=== PATIENT | female | born 2000 | race Caucasian/White ===

== ENCOUNTER 2022-11-09 20:10 | Observation (INO) | payer OTHER ==
[2022-11-09] MEDS ORDERED: NALOXONE 0.4 MG/ML 1 ML VIAL IV PRN (23:00)
--- NOTE | 2022-11-09 23:14 | ED ---
General Adult HPI - General Chief complaint: Seizure Stated complaint: Seizure Time Seen by Provider: 11/09/22 21:12 Source: patient Mode of arrival: EMS Limitations: no limitations - History of Present Illness Initial comments: This is a 22-year-old female with a past medical history including PTSD, anxiety and depression presents emergency Department as a transfer patient from [facility] for evaluation by neurology for potential pseudoseizures. The patient reportedly had seizure-like activity at home with 2 episodes of seizure-like activity at home and one with EMS in transport. The patient did not have a history of any seizure disorder. The patient was reportedly able to respond during these seizure-like activity episodes and was transferred after a normal workup to be evaluated by neurology. On arrival, the patient was laying in bed without any acute distress but did have 2 episodes of seizure-like activity lasting approximately 30 seconds but was able to be responsive during these episodes. The episodes would only last while the patient's family members were in the room and were not occurring when she was alone in the room. The patient herself denied any other acute pain or complaints at this time. - Related Data Allergies Allergy/AdvReac Type Severity Reaction Status Date / Time No Known Allergies Allergy Verified 11/09/22 20:22 Review of Systems ROS Statement: Those systems with pertinent positive or pertinent negative responses have been documented in the HPI. ROS Other: All systems not noted in ROS Statement are negative. Past Medical History Past Medical History: No Reported History History of Any Multi-Drug Resistant Organisms: None Reported Past Surgical History: No Surgical Hx Reported Past Psychological History: No Psychological Hx Reported Smoking Status: Smoker, current status unknown Past Alcohol Use History: None Reported Past Drug Use History: None Reported General Exam Limitations: no limitations General appearance: alert, in no apparent distress Head exam: Present: atraumatic, normocephalic, normal inspection Eye exam: Present: normal appearance, PERRL Pupils: Present: normal accommodation ENT exam: Present: normal exam, normal oropharynx, mucous membranes moist Neck exam: Present: normal inspection, full ROM Respiratory exam: Present: normal lung sounds bilaterally Cardiovascular Exam: Present: regular rate, normal rhythm, normal heart sounds GI/Abdominal exam: Present: soft, normal bowel sounds Extremities exam: Present: normal inspection, full ROM Back exam: Present: normal inspection, full ROM Neurological exam: Present: alert, oriented X3, CN II-XII intact Psychiatric exam: Present: normal affect, normal mood Skin exam: Present: warm, dry Course Vital Signs 11/09/22 20:22 Temperature 98.4 F Pulse Rate 54 L Respiratory 18 Rate Blood Pressure 117/74 O2 Sat by Pulse 98 Oximetry Medical Decision Making - Medical Decision Making Was pt. sent in by a medical professional or institution (, [facility], [facility], urgent care, hospital, or care home...) When possible be specific @ -Yes, [facility] emergency department Did you speak to anyone other than the patient for history (EMS, parent, family, police, friend...)? What history was obtained from this source @ -Yes, patient's father and boyfriend were at the bedside and stated that the patient had these seizure-like activity multiple times at the day today. Did you review nursing and triage notes (agree or disagree)? Why? @ -I reviewed and agree with nursing and triage notes Were old charts reviewed (outside hosp., previous admission, EMS record, old E KG, old radiological studies, urgent care reports/EKG's, care home records)? Report findings @ -Yes, outside hospital records were reviewed for the ER visit@[facility]. Differential Diagnosis (chest pain, altered mental status, abdominal pain women, abdominal pain men, vaginal bleeding, weakness, fever, dyspnea, syncope, headache, dizziness, GI bleed, back pain, seizure, CVA, palpatations, mental health)? @ -Pseudoseizure, seizure activity, electrolyte abnormality EKG interpreted by me (3pts min.). @ -None X-rays interpreted by me (1pt min.). @ -None done CT interpreted by me (1pt min.). @ -CT head was ordered but was pending at this time. U/S interpreted by me (1pt. min.). @ -None done What testing was considered but not performed or refused? (CT, X-rays, U/S, labs)? Why? @ -None What meds were considered but not given or refused? Why? @ -None Did you discuss the management of the patient with other professionals (professionals i.e. COLLEEN Bose, [facility] [employer] [facility], lab, RT, psych nurse, social science teacher, sales service assistant, teacher, medical officer psychiatry, case operator)? Give summary @ -Yes, admitting physician was contacted regarding placement patient in observation. Was smoking cessation discussed for >3mins.? @ -No Was critical care preformed (if so, how long)? @ -No Were there social determinants of health that impacted care today? How? (Homelessness, low income, unemployed, alcoholism, drug addiction, transportation, low edu. Level, literacy, decrease access to med. care, [place] [facility], rehab)? @ -No Was there de-escalation of care discussed even if they declined (Discuss DNR or withdrawal of care, Hospice)? DNR status @ -No What co-morbidities impacted this encounter? (DM, HTN, Smoking, COPD, CAD, Cancer, CVA, ARF, Chemo, Hep., AIDS, mental health diagnosis, sleep apnea, morbid obesity)? @ -PTSD, anxiety, depression Was patient admitted / discharged? Hospital course, mention meds given and route, prescriptions, significant lab abnormalities, going to OR and other pertinent info. @ -The patient was seen and evaluated in the emergency department. Physical exam, the patient was resting in bed and did have 2 seizure-like episodes lasting approximately 30 seconds while was in the room but was responsive during these episodes. Vital signs on admission were stable. The patient had a full workup performed at [facility] and laboratory workup was obtained here. The patient also had a CT of the head ordered at the request of the admitting physician. The patient continued to remain stable and did not require any further medication at this time. The patient was placed in observation for neurology to evaluate the patient. The patient and her family were agreeable to this plan and was placed in observation in stable condition. Undiagnosed new problem with uncertain prognosis? @ -No Drug Therapy requiring intensive monitoring for toxicity (Heparin, Nitro, Insulin, Cardizem)? @ -No Were any procedures done? @ -No Diagnosis/symptom? @ -Seizure-like activity, rule out pseudoseizure Acute, or Chronic, or Acute on Chronic? @ -Acute Uncomplicated (without systemic symptoms) or Complicated (systemic symptoms)? @ -Uncomplicated Side effects of treatment? @ -No Exacerbation, Progression, or Severe Exacerbation? @ -No Poses a threat to life or bodily function? How? (Chest pain, USA, SD, pneumonia, PE, COPD, DKA, ARF, appy, cholecystitis, CVA, Diverticulitis, Homicidal, Suicidal, threat to staff... and all critical care pts) @ -No Critical Care Time Critical Care Time: No Disposition Clinical Impression: Seizure-like activity Disposition: ADMITTED IP TO THIS HOSP Condition: Stable Is patient prescribed a controlled substance at d/c from ED?: No Referrals: Roverto Ramos MD [Primary Care Provider] - 1-2 days Time of Disposition: 22:30 Decision to Admit Reason: Admit from EC Decision Date: 11/09/22 Decision Time: 22:30
--- NOTE | 2022-11-10 00:07 | CT ---
EXAM: CT Head Without Intravenous Contrast CLINICAL HISTORY: ITS.REASON CT Reason: Seizure like activity TECHNIQUE: Axial computed tomography images of the head/brain without intravenous contrast. CTDI is 49.2 mGy and DLP is 1099.4 mGy-cm. This CT exam was performed using one or more of the following dose reduction techniques: automated exposure control, adjustment of the mA and/or kV according to patient size, and/or use of iterative reconstruction technique. COMPARISON: No previous studies. FINDINGS: Brain: Unremarkable. No hemorrhage. No significant white matter disease. No abnormal extra-axial collection is noted. Midline shift: Midline anatomy is unremarkable. Ventricles: Unremarkable. No ventriculomegaly. Bones/joints: Calvarium is within normal limits. No acute fracture. Soft tissues: Unremarkable. Sinuses: Visualized sinuses are unremarkable. Mastoid air cells: Mastoid air cells are well pneumatized to. Other findings: Age appropriate changes. IMPRESSION: 1. No acute intracranial pathology is detected. 2. I advised MRI imaging of the brain with contrast administration for follow-up, for the sake of completeness of seizure workup.
[2022-11-10 00:24] LABS: ALT 20 U/L (4-34); AST 26 U/L (14-36); African American GFR (CKD) >90 (>60 ml/min/1.73 sqM); Alkaline Phosphatase 52 U/L (38-126); Anion Gap 7 mmol/L; Blood Urea Nitrogen 13 mg/dL (7-17); Calcium 9.4 mg/dL (8.4-10.2); Carbon Dioxide 22 mmol/L (22-30); Chloride 107 mmol/L (98-107); Glucose 86 mg/dL (74-99); Non-African American GFR(CKD) >90 (>60 ml/min/1.73 sqM); Potassium 4.2 mmol/L (3.5-5.1); Sodium 136 mmol/L (137-145); Total Bilirubin 0.7 mg/dL (0.2-1.3); Total Protein 6.6 g/dL (6.3-8.2)
[2022-11-10 00:40] LABS: Basophils % (A) 0 %; Eosinophils # (A) 0.1 k/uL (0-0.7); Eosinophils % (A) 2 %; HCT 38.7 % (34.0-46.0); HGB 12.9 gm/dL (11.4-16.0); Lymphocytes # (A) 2.8 k/uL (1.0-4.8); Lymphocytes % (A) 36 %; MCH 30.9 pg (25.0-35.0); MCHC 33.4 g/dL (31.0-37.0); MCV 92.5 fL (80.0-100.0); Mean Platelet Volume 7.2; Monocytes # (A) 0.4 k/uL (0-1.0); Monocytes % (A) 6 %; Neutrophils # (A) 4.1 k/uL (1.3-7.7); Neutrophils % (A) 53 %; Platelet Count 310 k/uL (150-450); RBC 4.18 m/uL (3.80-5.40); RDW 13.1 % (11.5-15.5); WBC 7.7 k/uL (4.0-11.0)
--- NOTE | 2022-11-10 02:14 | P.HPIM ---
History of Present Illness H&P Date: 11/10/22 Chief Complaint: seizure like activity 22-year-old female with depression. And anxiety She is coming in as a transfer from [facility] after having seizure-like activity she reports the first attack was at home when she was having some headache all day and then went to rest and then she was told that she was having seizure-like activity she claims that the seizure abscesses are recorded but she failed to show me the videos as he didn't have them and was waiting for the boyfriend to send her. She denies any tongue biting or loss of bladder or bowel control she denies any history of seizures she denies heavy drinking alcohol. She denies any head injury Patient denies any nausea vomiting recent travel sick contacts or any history of seizures Patient denies smoking or illicit drugs Review of Systems Pertinent positives as noted in HPI. All other systems were reviewed and are negative Past Medical History Past Medical History: No Reported History History of Any Multi-Drug Resistant Organisms: None Reported Past Surgical History: No Surgical Hx Reported Past Psychological History: No Psychological Hx Reported Smoking Status: Smoker, current status unknown, Vaper Past Alcohol Use History: None Reported Past Drug Use History: Marijuana Additional Drug Use History / Comment(s): occasional marijuana use Medications and Allergies Allergies Allergy/AdvReac Type Severity Reaction Status Date / Time No Known Allergies Allergy Verified 11/09/22 20:22 Physical Exam Vitals: Vital Signs Temp Pulse Pulse Resp BP BP Pulse Ox 11/10/22 01:19 98.3 F 58 L 16 138/62 98 11/10/22 00:11 54 L 16 116/80 98 11/09/22 20:22 98.4 F 54 L 18 117/74 98 Intake and Output 11/09/22 11/09/22 11/10/22 14:59 22:59 06:59 Other: Weight 77.111 kg 77.111 kg Constitutional: No acute distress, conversant, pleasant Eyes: Anicteric sclerae, moist conjunctiva, Pupils equal round reactive to light ENMT: NC/AT Oropharynx clear, no erythema, or exudates Neck: Supple, no masses, or JVD No carotid bruits No thyromegaly Lungs: Clear to auscultation Clear to percussion Normal respiratory effort, no accessory muscle use Cardiovascular: Heart regular in rate and rhythm, No murmurs, gallops, or rubs No peripheral edema Abdominal: Soft Nontender, no guarding, rebound or rigidity Abdomen moving with respiration Normoactive bowel sounds No hepatomegaly, No splenomegaly No palpable mass No abdominal wall hernia noted Skin: Normal temperature, tone, texture, turgor No induration No subcutaneous nodules No rash, lesions No ulcers Extremities: No digital cyanosis No clubbing Pedal pulses intact and symmetrical Radial pulses intact and symmetrical No calf tenderness Psychiatric: Alert and oriented to person, place and time Appropriate affect fair judgement Neuro Muscles Strength 5/5 in all 4 extremities Sensation to light touch grossly present throughout Cranial nerves II-XII grossly intact Lymphatics: no palpable cervical or supraclavicular lymph nodes Results CBC & Chem 7: 11/09/22 23:50 11/09/22 23:50 Labs: Abnormal Lab Results - Last 24 Hours (Table) 11/09/22 Range/Units 23:50 Sodium 136 L (137-145) mmol/L Thrombosis Risk Factor Assmnt - Choose All That Apply Any of the Below Risk Factors Present?: Yes Each Factor Represents 1 point: Obesity (BMI >25) Other Risk Factors: No Other congenital or acquired thrombophilia - If yes, enter type in comment: No Thrombosis Risk Factor Assessment Total Risk Factor Score: 1 Thrombosis Risk Factor Assessment Level: Low Risk Assessment and Plan Assessment: 22-year-old female with no significant past medical history transferred to a facility for [facility] for seizure-like activity I discussed the case with the ED doctor and accepted the admission for neurologic evaluation With anticipated length of stay less than 2 midnights She does seizure-like activity, check further brain imaging Seizure precautions Fall precautions Neurological evaluation Check EEG Check electrolytes magnesium Full code DVT prophylaxis heparin subcu 3 times a day
[2022-11-10] MEDS: SODIUM CHLORIDE 0.9% 1,000 ML IV SCH ×2 (02:35→19:58)
[2022-11-10] MEDS ORDERED: LORazepam 2 MG/ML INJ IV PRN (08:43)
[2022-11-10] MEDS ORDERED: ALBUTEROL NEBULIZED 2.5 MG/3 ML INHALATION PRN (08:44)
[2022-11-10] MEDS: busPIRone HCl 10 MG TAB PO SCH ×2 (09:27→19:54)
[2022-11-10] MEDS: ESCITALOPRAM 10 MG TAB PO SCH (09:28)
[2022-11-10] MEDS: ENOXAPARIN 40 MG/0.4 ML SYRINGE SQ SCH (09:28)
[2022-11-10 11:06] LABS: Cocaine Screen,Urine Not Detected (NotDetected); Opiate Screen,Urine Not Detected (NotDetected); Phencyclidine Screen,Urine Not Detected (NotDetected); Urn Cannabinoid Scrn Detected (NotDetected)
[2022-11-10 11:07] LABS: Amphetamine Screen,Urine Not Detected (NotDetected); Barbiturate Screen,Urine Not Detected (NotDetected); Benzodiazepines Screen,Urine Detected (NotDetected); Methadone Screen, Urine Not Detected (NotDetected); Oxycodone Screen, Urine Not Detected (NotDetected); Tricyclic Antidepressant,Urine Not Detected (NotDetected)
[2022-11-10] MEDS ORDERED: levETIRAcetam IV 1,500 MG in SODIUM CHLORIDE 0.9% 250 ML IVPB ONE (11:48)
[2022-11-10] MEDS ORDERED: levETIRAcetam IV 500 MG/5 ML VIAL IVP ONE (12:00)
--- NOTE | 2022-11-10 12:57 | P.CNNES ---
History of Present Illness Consult date: 11/10/22 Requesting physician: Mack Faria Reason for Consult: Seizure-like activity, rule out pseudoseizures History of Present Illness: Patient is a 22-year-old left-handed female came to the hospital by ambulance yesterday at 8:10 PM for seizure-like activity. Patient does not remember details about her history. I spoke to patient's boyfriend, who provided with a history. Apparently in August 2022, patient started having chest pains. In beginning of October, she started having syncopal spells versus seizure. Patient's boyfriend states that in early October, she passed out 4 times while she was on the phone with him and was complaining of dizziness, lightheadedness. She fell in the basement, passed out. She was taken to [facility], where she was diagnosed with "syncope seizure". Another time she was at the [facility] with her nephew when she started feeling lightheaded, blurred vision, with difficulty with her vision and she called 911. The third time she was admitted last on 11/06/2022. Patient was dehydrated, had anxiety attack, and was taken to the hospital where she was diagnosed with psychological pseudoseizures. She was convulsing, whole-body jerking rapidly. Patient currently not on any seizure medication. Patient was referred to woodworking machine offbearer Dr. Brown on 12/09/2022 and also referred to a neurologist in [facility] [place]. On Thursday, 2 days ago, she had a single seizure, in which she was convulsing, jerking for 2 minutes and then she started crying telling her boyfriend that "I don't want to ". Apparently yesterday patient woke up at 12 noon, complaining of chest pain and then complaining of headache. She laid down and tried to go back to sleep. Patient states that her boyfriend came back from the bathroom and she went into seizure and then she does not remember details and woke up in the hospital. She does not remember EMS arriving at home, or EMS ride to the hospital. Denies any tongue bite or loss of control of urine. Patient complaining of headache for the last 4 days. She is trying to sleep it off rather than taking medication. Patient's boyfriend showed me some recorded video was on his cell phone in which patient was laying on her side, and then started having jerking, which appears somewhat nonepileptic. Patient had a very depressed facial expression, crying with it. EMS flow sheet not available in the chart. Vital signs on arrival blood pressure 117/74, pulse rate 54, temperature 98.4. Blood test shows normal CBC, sodium 136 potassium 4.2, normal renal and hepatic panel. CT head revealed no acute intracranial process. I personally reviewed CT head, agree with the findings. Home medications include BuSpar 10 mg twice a day, Seroquel 50 mg at bedtime, Protonix, Lexapro 10 mg. Albuterol. Patient has history of vaping, but does not smoke. She denies any alcohol use. She lives with her dad and boyfriend. She smokes marijuana once in a while. Does not do any other drugs. Does not take any oral control pills, although is on copper IUD. Review of Systems Constitutional: Denies chills, Denies fever Eyes: denies blurred vision, denies diplopia, denies pain Ears: deny: decreased hearing, ear discharge, earache Ears, nose, mouth and throat: Reports headache, Denies sore throat Cardiovascular: Reports chest pain, Denies shortness of breath Respiratory: Denies cough, Denies excessive sputum Gastrointestinal: Denies abdominal pain, Denies diarrhea, Denies nausea, Denies vomiting Genitourinary: Denies dysuria, Denies hematuria Musculoskeletal: Reports low back pain, Denies myalgias, Denies neck pain Integumentary: Denies pruritus, Denies rash Neurological: Reports as per HPI Psychiatric: Reports anxiety, Reports depression Endocrine: Reports fatigue, Denies weight change Past Medical History Past Medical History: No Reported History History of Any Multi-Drug Resistant Organisms: None Reported Past Surgical History: No Surgical Hx Reported Past Psychological History: No Psychological Hx Reported Smoking Status: Smoker, current status unknown, Vaper Past Alcohol Use History: None Reported Past Drug Use History: Marijuana Additional Drug Use History / Comment(s): occasional marijuana use Medications and Allergies Home Medications Medication Instructions Recorded Confirmed Type Albuterol Sulfate [Ventolin HFA] 2 puff INHALATION RT-QID PRN 11/10/22 11/10/22 History Escitalopram [Lexapro] 10 mg PO DAILY 11/10/22 11/10/22 History Pantoprazole Sodium [Protonix] 20 mg PO HS 11/10/22 11/10/22 History QUEtiapine [SEROquel] 50 mg PO HS 11/10/22 11/10/22 History busPIRone HCl [Buspar] 10 mg PO BID 11/10/22 11/10/22 History Allergies Allergy/AdvReac Type Severity Reaction Status Date / Time No Known Allergies Allergy Verified 11/10/22 07:40 Physical Examination - Vital Signs Vital Signs: Vital Signs Temp Pulse Pulse Resp BP BP Pulse Ox 11/10/22 07:19 97.7 F 52 L 17 91/51 98 11/10/22 01:19 98.3 F 58 L 16 138/62 98 11/10/22 00:11 54 L 16 116/80 98 11/09/22 20:22 98.4 F 54 L 18 117/74 98 Intake and Output 11/09/22 11/10/22 11/10/22 22:59 06:59 14:59 Other: # Voids 1 Weight 77.111 kg 77.111 kg Patient is young female, very pleasant, in no acute distress. Patient is alert awake oriented to time place and person. Speech and language functions are normal. Patient can name and repeat very well. No aphasia or dysarthria. Attention, concentration and fund of knowledge is adequate. On cranial nerve examination, pupils are equal, round and reacting to light, visual almanza are full on confrontation, with no neglect on double simultaneous stimulation. Extraocular muscles are intact with no nystagmus. Face is symmetric, tongue protrudes to the midline. Palatal elevation and sensation normal, hearing and shoulder shrug normal, facial sensation normal. There is no evidence of tongue bite fili. On muscle strength testing, there is no pronator drift and the strength is normal in arms and legs distally and proximally. Deep tendon reflexes are symmetric and trace at the biceps, 1 at brachioradialis, 2 at the knees, 1 ankles and plantars downgoing bilaterally. Sensory to touch is equal with no neglect on double simultaneous stimulation. Cerebellar function showed no ataxia for [id number] testing. No dysdiadochokinesia. No ataxia for [id number] testing on either side. Tone and bulk of muscles normal. Gait deferred.. On general examination, there is no carotid bruit or murmur, S1-S2 audible. Chest is clear on consultation. Abdomen is soft nontender. No organomegaly, bowel sounds present. Peripheral pulses are present. No edema. I was across patient's room seeing another patient, when I was told that patient is having a seizure-like spell. Patient was again laying on her side and having some shoulder jerking, and some pelvic thrusting. Appears somewhat nonepileptic. Results - Laboratory Findings CBC and BMP: 11/09/22 23:50 11/09/22 23:50 Abnormal Lab Findings: Abnormal Labs 11/09/22 23:50 Sodium 136 L Assessment and Plan Assessment: * New onset seizure type spells versus syncope. Rule out seizure, nonepileptic seizure versus syncopal spells. * New onset chest pains, unclear cause. * Anxiety, depression. Rule out panic attacks causing above symptomatology Plan: * MRI of the brain with and without contrast, rule out any structural abnormality. * Urgent EEG to rule out any epileptiform activity. Patient may need prolonged EEG testing. * Cardiology consultation for chest pain, rule out syncopal spells * Orthostatic vitals. * Telemetry monitoring so far showing sinus bradycardia between 50s, sometimes dipping down in 40s. * Patient to receive 1.5 g of Keppra 1 dose, and Ativan 1 mg IV to stop seizure-like activity. Further dosing based upon EEG results. * Recommend patient no driving unless seizure free for 6 months, climbing ladders, operating dangerous machinery or unsupervised swimming. * Neurology will follow. Thank you for the consult. Time with Patient: Greater than 30
--- NOTE | 2022-11-10 14:53 | CONS ---
CONSULTATION HISTORY OF PRESENT ILLNESS: This is a 22-year-old lady with a history of underlying depression and possible anxiety disorder. She uses marijuana and smokes cigarettes. She came into the hospital complaining of what seems to be a seizure-like activity. She has some anxiety and depression. Seizure disorder is a probably pseudoseizure. This is being evaluated. However, she had a sharp pain in the chest starting on the right side of the chest across the chest lasting a few seconds, on and off, fleeting in nature. I was asked to see her in this regard. EKG is unremarkable. The patient's pain seems atypical. Laboratory data suggest that her electrolyte profile is normal. Quality of pain is atypical. I am recommending an echocardiogram as well to be performed to rule out any structural heart disease. Physical exam is unremarkable. The patient can be discharged whenever it is okay by Neurology or admitting doctor. She has no other significant cardiac history in the past. We have to discuss the need to refrain from smoking and using marijuana on a regular basis. Please refer to the chart for other details. MEDICATIONS AT HOME: Include: 1. Seroquel. 2. Protonix. 3. Lexapro. 4. BuSpar. 5. Ventolin inhaler. PHYSICAL EXAMINATION: VITAL SIGNS: Blood pressure is 118/70, pulse rate is 58 per minute. HEENT: Unremarkable. Fundus was not examined by me. NECK: Supple. No JVD. I do not hear a carotid bruit. There is no thyromegaly. HEART: Reveals S1 and S2 heard normally. No rub, murmur, or gallop. LUNGS: Clear. ABDOMEN: Soft and nontender. EXTREMITIES: Lower extremities reveal normal pulses. No edema. CENTRAL NERVOUS SYSTEM: Normal. DIAGNOSTIC STUDIES: EKG revealed sinus rhythm, no acute changes. IMPRESSION: 1. Atypical chest pain. 2. Question of seizure disorder. RECOMMENDATIONS: The patient's CAT scan of the head was unremarkable. Seizure workup is in progress. The pain in the chest is atypical. No further workup is necessary other than an echocardiogram which has been ordered. The patient can be discharged and follow up with her product applications scientist in the [place], [place] area. MMODL / IJN: [id number] /
--- NOTE | 2022-11-10 16:28 | MR ---
EXAMINATION TYPE: MR brain wo/w con DATE OF EXAM: 11/10/2022 COMPARISON: CT brain 11/09/2022 HISTORY: Syncope vs seizures, headaches CONTRAST: Performed utilizing 7.5 mL intravenous Gadavist gadolinium contrast. TECHNIQUE: Multiplanar, multiecho imaging on a 3.0 Yesica magnet is performed through the brain. Stud y is performed within 24 hours of arrival to the hospital. The craniovertebral junction is normal. The pituitary is normal. Optic chiasm as visualized appears normal. Diffusion-weighted imaging is performed. No abnormal hyperintensity is present to suggest an acute i ntracranial infarct or acute ischemic change. Signal of the brain appears normal. No suspicious deep white matter signal change to correlate with m igraine headaches is identified. Ventricles and sulci are appropriate for the patient age. No abnormal enhancement is evident. IMPRESSIONS: 1. Unremarkable pre and postcontrast MRI brain
--- NOTE | 2022-11-10 17:36 | P.PN ---
Subjective Progress Note Date: 11/10/22 Hospital course: Patient is a 22-year-old female of anxiety, nicotine dependence, and cannabinoid use. She presented to the emergency department with a chief complaint of seizure-like activity. Patient was reportedly transferred from [facility] where she presented with seizure-like activity after reports of headache. Upon arrival to our facility on 11/09/22 patient underwent full evaluation in our emergency department. Vital signs stable with blood pressure 117/74, heart rate 54, respiratory rate 18, SpO2 98% on room air and temperature 98.4F. CT head was completed and radiology report reviewed stating negative for acute intercranial pathology or abnormality. Patient was admitted under our services with consultation to neurology. Physical exam Patient seen and fully evaluated at bedside this morning. Patient's boyfriend at bedside as well. Per RN patient continues to have recurrent episodes of noted seizure-like activity: Believed to be stress-induced pseudoseizures, pt stated she was going to have a seizure and began having shaking of her arms and a sternal rub was performed and pt immediately stopped shaking movement and began talking and answering questions appropriately. Patient's boyfriend at bedside states that patient has diffuse shaking-like episodes when she is anxious or dealing with family issues. Patient has long history of traumatic family events and suffers from depression and anxiety. Vital signs reviewed and stable. General: Nontoxic, no distress and appears stated age. Derm: Skin warm and dry, normal coloration for ethnicity. Head: Atraumatic, normocephalic and symmetric. Eyes: EOMs intact, no lid lag, and anicteric sclera Mouth: no lip lesions, mucus membranes moist Cardiovascular: regular rate and rhythm with normal S1S2, no murmur, positive posterior tibial pulses bilaterally, and cap refill < 2 seconds. Lungs: Respirations even, regular, and unlabored on room air. Lungs CTA bilaterally, no rhonchi, no rales, no wheezing, and no accessory muscle usage. Abdominal: soft, nontender to palpation, no guarding, no appreciable organomegaly Ext: ROM intact. No gross muscle atrophy, no edema, no contractures Neuro: Speech clear, face symmetrical and CN II-XII grossly intact with no noted focal neuro deficits Psych: Alert and oriented to person, place, time, and situation. Appropriate and pleasant affect. Assessment and Plan of Care: Seizure-Like activity, believed to be pseudoseizures. Anxiety and depression Cannabinoid use disorder Nicotine dependence -Believed to be pseudoseizures, pt stated she was going to have a seizure and began having shaking of her arms and a sternal rub was performed and pt immediately stopped shaking movement and began talking and answering questions appropriately. Patient's boyfriend at bedside states that patient has diffuse shaking-like episodes when she is anxious or dealing with family issues. Patient has long history of traumatic family events and suffers from depression and anxiety. -Psychiatry consulted. -Order placed for urine drug screen and STAT urine hCG. -Upon follow-up with urine hCG was negative for and urine drug screen positive for benzodiazepines and marijuana. -Notified neurologist of seizure-like activity believed to be pseudoseizures and per his recommendation patient to continue to be given Keppra loading dose of 1500 mg IVPB at this time pending EEG and MRI results. -Continue telemetry monitoring -Resume a BuSpar 10 mg twice daily, Lexapro 10 mg daily, and Seroquel 50 mg nightly. -Seizure precautions to remain in place. CODE STATUS: Full code DVT prophylaxis: Lovenox Discussed with: Patient and RN Anticipated discharge date: Within the next [address]: Home Patient was seen independently by Nurse Pracitioner. This document was prepared using [employer] dictation software. Please allow for errors in mechanical oxidizer, while rare they do occur. I reviewed the documentation as provided by the DEEPTHI above, who is the original author of this note. I agree with the documented assessment and plan, with the following changes: none Objective - Vital Signs Vital signs: Vital Signs Temp 97.7 F 11/10/22 07:19 Pulse 52 L 11/10/22 07:19 Resp 17 11/10/22 07:19 BP 91/51 11/10/22 07:19 Pulse Ox 98 11/10/22 07:19 FiO2 Intake & Output 11/09/22 11/10/22 11/10/22 18:59 06:59 18:59 Weight 77.111 kg Other: # Voids 1 - Labs CBC & Chem 7: 11/09/22 23:50 11/09/22 23:50 Labs: Abnormal Lab Results - Last 24 Hours (Table) 11/09/22 Range/Units 23:50 Sodium 136 L (137-145) mmol/L
[2022-11-10] MEDS: PANTOPRAZOLE 40 MG TABLET PO SCH (19:54)
[2022-11-10] MEDS: QUEtiapine 50 MG TAB PO SCH (19:54)
[2022-11-10] MEDS ORDERED: ACETAMINOPHEN TAB 325 MG TAB PO PRN (22:10)
--- NOTE | 2022-11-10 22:22 | EEG ---
ELECTROENCEPHALOGRAM REPORT PREAMBLE: This is a 22-year-old female with new onset seizure type spells. EEG FINDINGS: This is a 21-channel digital EEG recorded with video component, utilizing 10/20 international system with referential and bipolar montages. Background consists of well developed, well regulated moderate voltage activity in 10 hertz alpha. Background is posterior dominant and reactive to eye opening and closing. Photic driving response was not clearly seen. Drowsiness was seen with appearance of bilaterally symmetric theta frequency rhythm. Some stage 2 sleep was seen with presence of sleep spindles. Sporadic, intermittent myoclonic jerks were noted during the study. Only at 1 point, there was presence of high amplitude frontally maximal 3-4 hertz slow waves seen lasting for less than a second. No other epileptiform activity was seen. No electrographic seizure was recorded. IMPRESSION: This is a borderline abnormal EEG during wakefulness, drowsiness, and stage 2 sleep. Intermittent, sporadic myoclonic jerks were noted, with no clear-cut associated epileptiform activity seen, although associated with some higher amplitude generalized theta at times prior to the jerk. If your suspicion for seizures is high, suggest prolonged EEG for further evaluation. No electrographic seizure was recorded. MMODL / IJN: [id number] / LAKSHMI
[2022-11-11] MEDS: SODIUM CHLORIDE 0.9% 1,000 ML IV SCH ×2 (06:23→19:32)
[2022-11-11] MEDS: ESCITALOPRAM 10 MG TAB PO SCH (09:16)
[2022-11-11] MEDS: ENOXAPARIN 40 MG/0.4 ML SYRINGE SQ SCH (09:16)
[2022-11-11] MEDS: busPIRone HCl 10 MG TAB PO SCH ×2 (09:16→19:40)
[2022-11-11] MEDS ORDERED: levETIRAcetam IV 500 MG/5 ML VIAL IVP SCH (12:30)
--- NOTE | 2022-11-11 12:30 | CA ---
Transthoracic Echo Report Name: Radha Davis Age: 22 Gender: F : 2000 Exam Date: 11/10/2022 13:01 Exam Location: [place] [facility] Ht (in): 67 Wt (lb): 170 Ordering Physician: Janet Zuniga Attending/Referring Phys: [id number], Nadia [employer] Officer Adriane Chu [facility] Procedure CPT: Indications: LVF Cardiac Hx: Technical Quality: Fair Contrast 1: Total Dose (mL): Contrast 2: Total Dose (mL): MEASUREMENTS (Male / Female) Normal Values 2D ECHO LV Diastolic Diameter PLAX 4.5 cm 4.2 - 5.9 / 3.9 - 5.3 cm LV Systolic Diameter PLAX 3.2 cm IVS Diastolic Thickness 0.6 cm 0.6 - 1.0 / 0.6 - 0.9 cm LVPW Diastolic Thickness 0.9 cm 0.6 - 1.0 / 0.6 - 0.9 cm LV Relative Wall Thickness 0.3 M-MODE Aortic Root Diameter MM 2.4 cm LA Systolic Diameter MM 3.7 cm LA Ao Ratio MM 1.6 AV Cusp Separation MM 2.0 cm DOPPLER AV Peak Velocity 121.1 cm/s AV Peak Gradient 5.9 mmHg AV Mean Velocity 91.9 cm/s AV Mean Gradient 3.6 mmHg AV Velocity Time Integral 29.9 cm LVOT Peak Velocity 98.6 cm/s LVOT Peak Gradient 3.9 mmHg LVOT Velocity Time Integral 24.0 cm Mitral E Point Velocity 107.1 cm/s Mitral A Point Velocity 32.2 cm/s Mitral E to A Ratio 3.3 MV Deceleration Time 177.3 ms LV E' Lateral Velocity 19.3 cm/s Mitral E to LV E' Lateral Ratio 5.5 LV E' Septal Velocity 15.6 cm/s Mitral E to LV E' Septal Ratio 6.9 Right Atrial Pressure 3.0 mmHg FINDINGS Left Ventricle Normal left ventricular size, wall thickness, systolic function with no obvious regional wall motion abnormalities. The ejection fraction is visually estimated at 55-60%. Right Ventricle The right ventricle is normal in size and function. Right Atrium The right atrium is normal in size. Left Atrium The left atrium is normal in size. Mitral Valve Structurally normal mitral valve without significant stenosis or prolapse. Trace mitral regurgitation. Aortic Valve Structurally normal aortic valve without significant sclerosis or stenosis. There is no aortic regurgitation. Tricuspid Valve Structurally normal tricuspid valve without significant stenosis. No tricuspid regurgitation. Pulmonic Valve Structurally normal pulmonic valve without significant stenosis. Trace to mild pulmonic regurgitation. Pericardium Normal pericardium without effusion. Aorta Normal aortic root dimension. CONCLUSIONS Normal study. Normal LV size and systolic function. No significant abnormality on the Doppler exam. No pericardial effusion Previewed by: Dr. Cristina Markham MD (Electronically Signed) Final Date: 11 November 2022 12:29
--- NOTE | 2022-11-11 13:58 | P.CN ---
Psychiatric Consult - . Consult date: 11/11/22 Consult:: Psychiatry was consulted for "pseudoseizures" and EMR/chart was reviewed by commercial lines underwriter. Cfd Engineer also spoke with neurologist Dr. Stovall prior to seeing patient today and also spoke with patient's nurse. Cfd Engineer was not in her room today and was getting prolonged EEG done today. will re-attempt to see patient tomorrow.
--- NOTE | 2022-11-11 14:19 | P.PN ---
Subjective Progress Note Date: 11/11/22 History of present illness: This is a 30 year old female with history of depression and possible anxiety d isorder, marijuana use and tobacco use and dependence. Patient presented for seizure-like activity thought to be probably pseudoseizure. Patient had sharp pain in her chest starting in the right side and across last a few seconds on and off in a fleeting nature. We are asked to evaluate patient for chest pain. EKG was unremarkable. Laboratory studies were unremarkable. Echocardiogram reveals. 11/11 No new concerns today from the patient. Telemetry has been a sinus rhythm. Echocardiogram reveals normal study. Normal LV size and systolic function. No significant abnormality on the Doppler exam. Pericardial effusion. Physical examination: Gen: This is a 22-year-old female. She is resting in bed and appears to be comfortable. VS: reviewed. Blood pressure 94/59, heart rate in the 40s to 80. HEENT: Head is atraumatic, normocephalic. Pupils equal, round. Sclerae is ani cteric. LUNGS: Clear to auscultation. No wheezes or rhonchi. No intercostal retractions. HEART: Regular rate and rhythm. No murmur. EXTREMITIES: No pedal edema. No calf tenderness. NEUROLOGICAL: Patient is awake, alert and oriented x3. Assessment: Atypical chest pain Possible seizure disorder Plan: No further cardiac workup is warranted at this time. Cardiology will sign off and follow on an as-needed basis. Nurse practitioner note has been reviewed, I agree with documented findings and plan of care. Patient was seen and examined. Objective - Vital Signs Vital signs: Vital Signs Temp 97.7 F 11/11/22 07:00 Pulse 48 L 11/11/22 07:00 Resp 14 11/11/22 07:00 BP 94/89 11/11/22 07:00 Pulse Ox 98 11/11/22 07:00 FiO2 Intake & Output 11/10/22 11/11/22 11/11/22 18:59 06:59 18:59 Intake Total 360 Balance 360 Intake: Oral 360 Other: # Voids 2 1 - Labs CBC & Chem 7: 11/09/22 23:50 11/09/22 23:50 Labs: Abnormal Lab Results - Last 24 Hours (Table) 11/10/22 Range/Units 10:27 U Benzodiazepines Scrn Detected H (NotDetected) U Marijuana (THC) Screen Detected H (NotDetected)
--- NOTE | 2022-11-11 14:35 | P.PN ---
Subjective Progress Note Date: 11/11/22 Hospital course: Patient is a 22-year-old female of anxiety, nicotine dependence, and cannabinoid use. She presented to the emergency department with a chief complaint of seizure-like activity. Patient was reportedly transferred from [facility] where she presented with seizure-like activity after reports of headache. Upon arrival to our facility on 11/09/22 patient underwent full evaluation in our emergency department. Vital signs stable with blood pressure 117/74, heart rate 54, respiratory rate 18, SpO2 98% on room air and temperature 98.4F. CT head was completed and radiology report reviewed stating negative for acute intercranial pathology or abnormality. Patient was admitted under our services with consultation to neurology. Urine drug screen was positive for benzodiazepines and marijuana. MRI was completed and radiology report reviewed stating unremarkable pre-and postcontrast MRI of brain with no acute abnormalities. Physical exam Patient seen and fully evaluated at bedside this morning. Patient and RN denies any further episodes of seizure-like activity. Patient was resting comfortably at time of assessment. She denied having any complaints at this time. Vital signs reviewed and stable. General: Nontoxic, no distress and appears stated age. Derm: Skin warm and dry, normal coloration for ethnicity. Head: Atraumatic, normocephalic and symmetric. Eyes: EOMs intact, no lid lag, and anicteric sclera Mouth: no lip lesions, mucus membranes moist Cardiovascular: regular rate and rhythm with normal S1S2, no murmur, positive posterior tibial pulses bilaterally, and cap refill < 2 seconds. Lungs: Respirations even, regular, and unlabored on room air. Lungs CTA bilaterally, no rhonchi, no rales, no wheezing, and no accessory muscle usage. Abdominal: soft, nontender to palpation, no guarding, no appreciable organomegaly Ext: ROM intact. No gross muscle atrophy, no edema, no contractures Neuro: Speech clear, face symmetrical and CN II-XII grossly intact with no noted focal neuro deficits Psych: Alert and oriented to person, place, time, and situation. Appropriate and pleasant affect. Assessment and Plan of Care: Seizure-Like activity, believed to be pseudoseizures. Anxiety and depression Cannabinoid use disorder Nicotine dependence -Believed to be pseudoseizures, pt stated she was going to have a seizure and began having shaking of her arms and a sternal rub was performed and pt immediately stopped shaking movement and began talking and answering questions appropriately. Patient's boyfriend at bedside stated that patient has diffuse shaking-like episodes when she is anxious or dealing with family issues. Joanna tabares has long history of traumatic family events and suffers from depression and anxiety. -Psychiatry consulted and appreciate recommendations. -Neurology following, discussed plan of care, neurologist recommending prolonged EEG and patient to complete this afternoon. -Urine drug screen positive for benzodiazepines and marijuana. -MRI was completed and radiology report reviewed stating unremarkable pre-and postcontrast MRI of brain with no acute abnormalities. -EEG was completed and negative for electrographic seizure activity. -Continue telemetry monitoring -Continue BuSpar 10 mg twice daily, Lexapro 10 mg daily, and Seroquel 50 mg nightly. -Seizure precautions to remain in place. CODE STATUS: Full code DVT prophylaxis: Lovenox Discussed with: Patient, neurologist and RN Anticipated discharge date: Plan for discharge later today, awaiting a prolonged EEG results. Anticipated discharge place: Home Patient was seen independently by Nurse Pracitioner. This document was prepared using [employer] dictation software. Please allow for errors in product development actuary, while rare they do occur. Bao Pitts NP rendered care for this patient independently, reviewed the findings and plan as documented in the note above. I did not physically speak with or examine the patient on this date. Objective - Vital Signs Vital signs: Vital Signs Temp 97.7 F 11/11/22 07:00 Pulse 48 L 11/11/22 07:00 Resp 14 11/11/22 07:00 BP 94/89 11/11/22 07:00 Pulse Ox 98 11/11/22 07:00 FiO2 Intake & Output 11/10/22 11/11/22 11/11/22 18:59 06:59 18:59 Intake Total 360 Balance 360 Intake: Oral 360 Other: # Voids 2 1 - Labs CBC & Chem 7: 11/09/22 23:50 11/09/22 23:50 Labs: Abnormal Lab Results - Last 24 Hours (Table) 11/10/22 Range/Units 10:27 U Benzodiazepines Scrn Detected H (NotDetected) U Marijuana (THC) Screen Detected H (NotDetected)
[2022-11-11] MEDS: PANTOPRAZOLE 40 MG TABLET PO SCH (19:40)
[2022-11-11] MEDS: QUEtiapine 50 MG TAB PO SCH ×2 (19:40→19:42)
--- NOTE | 2022-11-11 22:12 | EEG ---
ELECTROENCEPHALOGRAM REPORT ELECTROENCEPHALOGRAM (EEG) REPORT: TECHNIQUE: This is a report from a prolonged 2-1/2-hour digital video EEG performed using the 10/20 International Electrode Placement System. HISTORY: Seizure-like activity. Happens about 30 times per day. CURRENT MEDICATIONS: 1. Tylenol. 2. Albuterol. 3. BuSpar. 4. Lovenox. 5. Lexapro. 6. Ativan. 7. Protonix. 8. Seroquel. FINDINGS: Recording start time: 11/11/2022, at 1330 hours. Recording end time: 11/11/2022, at 1605 hours. EVENTS: During this 2-1/2-hour video EEG, numerous events were recorded as will be described below. These were not associated with epileptiform activity. The first event occurs at 13:47:35. In this event, the patient is lying in the examination chair mostly supine, and there is chest jerking noted which increases in frequency and then involves the upper body at 13:47:53. There is also some brief head flexion noted, and the patient taps with her right hand. The second event begins at 13:48:19, involves sudden jerking of the chest, the upper body, and the head. The patient is not responding at 13:48:35. The event stops at 13:48:45. The next event is really a series of events, which is on and off intermittent jerking primarily of the chest and the upper body. Examples include 13:49:30, 13:49:36, 13:49:38, 13:49:51, 13:49:42, 13:49:43, 13:49:50, and 13:50:05. These events were not associated with epileptiform activity. BACKGROUND: The background activity consists of 9 to 10 Hz rhythmic waveforms, symmetric through both posterior quadrants. ACTIVATION: HYPERVENTILATION: Not performed. PHOTIC STIMULATION: Mild symmetric driving seen. SLEEP: Stages I and II of sleep noted. ABNORMALITIES: None. IMPRESSION: Normal 2-1/2-hour video EEG. No clinical or electrographic seizures were recorded. No epileptiform activity was present. Numerous events were recorded as described above consisting primarily of chest jerking, but also some head flexion. These were not associated with epileptiform activity. MMODL / IJN: [id number] /
--- NOTE | 2022-11-11 22:46 | P.PN ---
Subjective Progress Note Date: 11/11/22 Patient was seen for follow-up. Patient is laying in the bed, with her boyfriend. Patient had 9 seizure type spells since yesterday. Patient's boyfriend says that the seizures are now slightly different in semiology. He showed me a video, in which her eyes were closed, her head was twitching to the right, but her face was twitching to the left. The event appears nonepileptic. Objective - Vital Signs Vital signs: Vital Signs Temp 97.7 F 11/11/22 07:00 Pulse 48 L 11/11/22 07:00 Resp 14 11/11/22 09:16 BP 94/59 11/11/22 07:00 Pulse Ox 98 11/11/22 07:00 FiO2 Intake & Output 11/10/22 11/11/22 11/11/22 18:59 06:59 18:59 Intake Total 360 Balance 360 Intake: Oral 360 Other: Voiding Method Toilet # Voids 2 1 - Exam Normal. - Labs CBC & Chem 7: 11/09/22 23:50 11/09/22 23:50 Assessment and Plan Assessment: * New onset seizure type spells versus syncope. 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 * New onset chest pains, unclear cause. * Anxiety, depression. Rule out panic attacks causing above symptomatology Plan: * MRI of the brain with and without contrast, is normal. * Routine EEG was borderline abnormal during wakefulness, drowsiness and stage II sleep. Intermittent, sporadic myoclonic jerks were noted, with no clear- cut associated epileptiform activity seen, although associated with some higher amplitude generalized theta at times prior to the jerk. If your suspicion for seizures is high, suggest prolonged EEG for further evaluation. * Prolonged EEG 2.5 hours performed today was normal. No clinical or electrographic seizures were recorded. No epileptiform activity was present. Numerous events were recorded consisting primarily of chest jerking, but also some head flexion. These were not associated with epileptiform activity. We will discontinue Keppra. * Cardiology input appreciated. Patient has atypical chest pain. No other workup or commended. * Orthostatic vitals. * Telemetry monitoring so far showing sinus bradycardia between 50s, sometimes dipping down in 40s. * Psychiatry consultation for anxiety depression and possible nonepileptic seizures. * Recommend patient no driving unless seizure free for 6 months, climbing ladders, operating dangerous machinery or unsupervised swimming. * Neurology will sign off. Dr. Sage Horton covering neurology service in the morning for any concerns.
[2022-11-12 00:58] VITALS: RESP 14
[2022-11-12] MEDS: SODIUM CHLORIDE 0.9% 1,000 ML IV SCH (05:36)
[2022-11-12 07:46] VITALS: PULSE 54; TEMP 97.7
[2022-11-12 08:03] VITALS: BP 93/58
[2022-11-12] MEDS: busPIRone HCl 10 MG TAB PO SCH (09:22)
[2022-11-12] MEDS: ESCITALOPRAM 10 MG TAB PO SCH (09:22)
[2022-11-12] MEDS: ENOXAPARIN 40 MG/0.4 ML SYRINGE SQ SCH (09:22)
--- NOTE | 2022-11-12 11:31 | P.DS ---
Providers Date of admission: 11/09/22 23:00 Expected date of discharge: 11/12/22 Attending physician: Judy Lopez MD Consults: 11/09/22 23:00 Consult Physician Routine Consulting Provider: Sage Horton Consult Reason/Comments: Seizure-like activity, rule out pseudoseizures Do you want consulting provider notified?: Yes, Notify in am 11/10/22 09:49 Consult Physician Routine Consulting Provider: Taj Brown Consult Reason/Comments: Recurrent chest pain, syncopal spells, dizziness Do you want consulting provider notified?: Yes 11/10/22 17:26 Consult Physician Routine Consulting Provider: Aron Jack Consult Reason/Comments: Pseudoseizures Do you want consulting provider notified?: Yes Primary care physician: Roverto Ramos MD Hospital Course: Discharge Diagnosis: Pseudoseizures Anxiety and depression Cannabinoid use disorder Nicotine dependence. Hospital Course: Patient is a 22-year-old female of anxiety, nicotine dependence, and cannabinoid use. She presented to the emergency department with a chief complaint of seizure-like activity. Patient was reportedly transferred from [facility] where she presented with seizure-like activity after reports of headache. Upon arrival to our facility on 11/09/22 patient underwent full evaluation in our emergency department. Vital signs stable with blood pressure 117/74, heart rate 54, respiratory rate 18, SpO2 98% on room air and temperature 98.4F. CT head was completed and radiology report reviewed stating negative for acute intercranial pathology or abnormality. Patient was admitted under our services with consultation to neurology. Urine drug screen was positive for benzodiazepines and marijuana. MRI was completed and radiology report reviewed stating unremarkable pre-and postcontrast MRI of brain with no acute abnormalities. She underwent EEG which was negative for epileptic activity. Neurology then sent patient for prolonged 2-1/2 hour digital video EEG in which patient was a Reported to Have Numerous Events Consisting with Jerking Movements and Head Flexion However No Signs of Epileptiform Activity. Seizure activity secondary to pseudoseizures. This was discussed fully with the neurologist and psychiatrist. Discussed findings also with patient and patient's boyfriend at bedside per patient's request. Patient does follow up outpatient with [facility]. Discussed with [facility] nurse over the telephone and patient is scheduled to see counselor tomorrow morning and follow up with Dr. Gomez her psychiatrist on 12/18/22. No medication changes were made this admission. Patient encouraged to take medications as previously ordered. Patient medically stable for discharge at this time. Patient also strongly encouraged on smoking cessation and cessation of cannabis use. Physical exam Vital signs reviewed and stable. General: Nontoxic, no distress and appears stated age. Derm: Skin warm and dry, normal coloration for ethnicity. Head: Atraumatic, normocephalic and symmetric. Eyes: EOMs intact, no lid lag, and anicteric sclera Mouth: no lip lesions, mucus membranes moist Cardiovascular: regular rate and rhythm with normal S1S2, no murmur, positive posterior tibial pulses bilaterally, and cap refill < 2 seconds. Lungs: Respirations even, regular, and unlabored on room air. Lungs CTA bilaterally, no rhonchi, no rales, no wheezing, and no accessory muscle usage. Abdominal: soft, nontender to palpation, no guarding, no appreciable organomegaly Ext: ROM intact. No gross muscle atrophy, no edema, no contractures Neuro: Speech clear, face symmetrical and CN II-XII grossly intact with no noted focal neuro deficits Psych: Alert and oriented to person, place, time, and situation. Appropriate and pleasant affect. A total of 31 minutes of time were spent preparing this complex discharge summary. Pt was discharged on 11/12/22 11:29 AM. Patient was seen independently by Nurse Practitioner. This document was prepared using [employer] dictation software. Please allow for errors in boat canvas maker installer while rare they do occur. I reviewed the documentation as provided by the DEEPTHI above, who is the original author of this note. I agree with the documented assessment and plan, with the following changes: none Patient Condition at Discharge: Stable Plan - Discharge Summary New Discharge Prescriptions: Continue busPIRone HCl [Buspar] 10 mg PO BID QUEtiapine [SEROquel] 50 mg PO HS Pantoprazole Sodium [Protonix] 20 mg PO HS Escitalopram [Lexapro] 10 mg PO DAILY Albuterol Sulfate [Ventolin HFA] 2 puff INHALATION RT-QID PRN PRN Reason: Shortness Of Breath Discharge Medication List Albuterol Sulfate [Ventolin HFA] 2 puff INHALATION RT-QID PRN 11/10/22 [History] Escitalopram [Lexapro] 10 mg PO DAILY 11/10/22 [History] Pantoprazole Sodium [Protonix] 20 mg PO HS 11/10/22 [History] QUEtiapine [SEROquel] 50 mg PO HS 11/10/22 [History] busPIRone HCl [Buspar] 10 mg PO BID 11/10/22 [History] Follow up Appointment(s)/Referral(s): Roverto Ramos MD [Primary Care Provider] - 1-2 days Patient Instructions/Handouts: Seizure/Epilepsy Discharge Instructions & Follow-Up Activity/Diet/Wound Care/Special Instructions: Activity: As tolerated. Take breaks as needed. Diet: Heart healthy and carb consistent diet. Avoid salts, or foods with hidden salts such as canned or boxed foods and frozen dinners. Extra salt makes your heart work harder and traps the fluid in your body for longer. Special Instructions: Take all of your medications as directed and remember to keep all of your doctor 's appointments and follow-up as needed. Thank you for allowing us to participate in your care, it was truly a pleasure having you for our patient!!! [place] state law requires no driving until seizure free for 6 months. It is also important to avoid climbing ladders, operating dangerous or heavy machinery or unsupervised swimming until seizure free for 6 monthPt to follow Pt to follow up with therapist at [facility] in [place] 11/13 at 11:00am Psychiatrist as previouslyy scheduled on 12/[address] Gomez Discharge Disposition: HOME SELF-CARE
--- NOTE | 2022-11-12 12:51 | P.CN ---
Psychiatric Consult - . Consult date: 11/12/22 Consult:: 11/12/22 12:44 IDENTIFYING DATA: This patient is a 22-year-old female currently lives with her boyfriend, she has no kids, she is currently unemployed and in high school. REASON FOR REFERRAL: Psychiatry was consulted for "pseudoseizures" HISTORY OF PRESENT ILLNESS: The patient presented to the hospital initially as a transfer from [facility]. Patient apparently was "seizure-like activities" according the ER report. Patient had a computed tomography scan and also an MRI which did not show any acute changes, your instruction is positive for THC and benzodiazepines. Patient had an EEG as well as a prolonged EEG that did not show any definitive signs of epileptogenic activity. Patient was attempted to be seen by selling underwriter yesterday for initial consultation however was not in the room. Assistant Property Manager went back today to speak with patient and evaluate her this morning. Patient had on and off all her clothes and was preparing for discharge. Her boyfriend was waiting for her outside. She claims she was admitted for "pseudoseizures" and states that this has been going on since November. She claims that she just "passes out" and claims that it is mainly when she is under a lot of stress. She claims that her main triggers been fighting with her boyfriend. States that she does have mood swings at times however denies being diagnosed bipolar or any other psychiatric illness. She does states that she has a history of depression and anxiety and also PTSD. States that she can cycle fairly quickly and be irritable at times. States that her mood at this time is okay, denying any depression, denying any anxiety at this time. States that she hasn't taking her medications and following up with her outpatient psychiatrist through [facility]. States her sleep and appetite are fair. Patient appeared to be fairly appropriate and directable during conversation. At this time patient denies any suicidal or homical ideations, intent or plan. Patient denies any auditory, visual hallucinations and denies any paranoia or delusions. Patients admits to using marijuana occasionally, denies any other recreational drug use. PAST PSYCHIATRIC HISTORY: Patient has a a history of depression and anxiety including that she also has a history of "cannabis use disorder. Patient is currently on BuSpar twice a day, Seroquel at nighttime and recently was switched from Celexa to Lexapro. She states that her last psychiatric hospitalization was at the age of [age] years old when she went to [place]. He claims that she follows up with her outpatient psychiatrist through [facility] [place]. Patient denies any history of suicide attempts in the past. PAST MEDICAL HISTORY: As per medical H&P. ALLERGIES: as per EMR. CHEMICAL DEPENDENCY HISTORY: as per HPI. FAMILY PSYCHIATRIC/SUBSTANCE USE HISTORY: denies SOCIAL HISTORY: Patient was born and raised in [place] and also was moved all around [place] all she grew up. She claims that she is still in high school at this time, she currently lives with her boyfriend has no kids, she is unemployed. She denies any legal history. MENTAL STATUS EXAM: General Appearance: Patient appears to be mildly overweight, some tattoos on her arms, stated age is alert, pleasant, and cooperative. Patient appears to have fair hygiene and grooming wearing hospital gown with fair eye contact. Behavior: Patient is calmly lying in bed without any agitated behavior. Directable Speech: Patient's speech is fluent and nonpressured. Mood/Affect: Patient reports their mood is "ok now", affect is congruent Suicidality/Homicidality: Patient denies having any suicidal or homicidal ideat ion intent or plan. Perceptions: Patient denies any visual hallucinations and denies any auditory hallucinations Though content/process: There is no evidence of any delusional thought content and thought process is linear and goal-directed. Future oriented Memory and concentration: AOX3, grossly intact for the purposes of this session. Can spell "WORLD" backwards Judgment and insight: Fair IMPRESSIONS: probable pseudo-seizures r/o cluster b personality disorder hx of depression and anxiety cannabis use disorder mild abuse PLAN: -At this time patient DOES NOT meet criteria for inpatient psychiatric admission. -Would recommend the following medication changes/additions: Can continue with current psychiatric medications including Seroquel 50 mg daily at bedtime for mood stabilization/insomnia, BuSpar 10 mg twice a day for anxiety and Lexapro 10 mg daily for mood/anxiety. -Patient is currently established with [facility] and has a psychiatrist appointment for follow-up next week, patient claims that she is agreeable to go to this. -Assistant Property Manager spoke with patient about substance abuse and the harmful effects on medical and mental health, patient verbally understood and agreed. -Communicated plan to patient's nurse and SHELL MOLD BONDER -Psychiatry will sign off at this time -Please contact with any questions.
== END 2022-11-12 12:00 | disposition home or self-care (01) ==
LOC: EC 20:10 → 6NMEDSUR 23:00
PROVIDERS: ADMIT Internal Medicine; ATTEND Internal Medicine
DX: R56.9 Unspecified convulsions (principal); R07.89 Other chest pain; F43.10 Post-traumatic stress disorder, unspecified; F12.10 Cannabis abuse, uncomplicated; I34.0 Nonrheumatic mitral (valve) insufficiency; F41.9 Anxiety disorder, unspecified; I37.1 Nonrheumatic pulmonary valve insufficiency; F32.A Depression, unspecified; F17.210 Nicotine dependence, cigarettes, uncomplicated; I31.39 Other pericardial effusion (noninflammatory); F17.290 Nicotine dependence, other tobacco product, uncomplicated; Z32.02 Encounter for pregnancy test, result negative; Z79.899 Other long term (current) drug therapy; Z56.0 Unemployment, unspecified
CPT/HCPCS: 96376; 96361 ×2; 96374; 99285; 95816; 95713; 95700; 93306; 80053; 83605; 83735; 85025; 81025; 80306; 70450; 70553; G0378 ×4; J1953 ×2; A9585